=== PATIENT | female | born 1955 | race Caucasian/White ===

== ENCOUNTER → 2023-09-07 08:33 | Outpatient (REF) | payer MEDICARE, BC, SELFPAY | LOC: MRI 08:33 | PROVIDERS: ATTENDING PHYSICIAN Physical Medicine & Rehabilitation; FAMILY PHYSICIAN Nurse Practitioner | DX: M54.12 Radiculopathy, cervical region (principal) | CPT/HCPCS: 72141 ==

== ENCOUNTER → 2024-11-24 08:38 | Outpatient (REF) | payer MEDICARE, BC, SELFPAY | LOC: HWRAD 08:38 | PROVIDERS: ATTENDING PHYSICIAN Nurse Practitioner | DX: R10.84 Generalized abdominal pain (principal) | CPT/HCPCS: 76700 ==

== ENCOUNTER → 2025-02-04 18:14 | Outpatient (REF) | payer MEDICARE, BC, SELFPAY | LOC: MRI 3T 18:14 | PROVIDERS: ATTENDING PHYSICIAN Nurse Practitioner | DX: K80.50 Calculus of bile duct without cholangitis or cholecystitis without obstruction (principal) | CPT/HCPCS: 74181 ==

== ENCOUNTER → 2025-04-06 13:24 | Outpatient (REF) | payer MEDICARE, BC, SELFPAY | LOC: HWRAD 13:24 | PROVIDERS: ATTENDING PHYSICIAN Internal Medicine Cardiovascular Disease; FAMILY PHYSICIAN Nurse Practitioner | DX: E78.010 Homozygous familial hypercholesterolemia [HoFH] (principal) | CPT/HCPCS: 75571 ==